=== PATIENT | female | born 1950 ===

== ENCOUNTER 2022-01-22 14:54 | Emergency (ER) | payer OTHER ==
[~2022-01-22] VITALS: Ht 152.4 cm; Wt 56.1 kg
[2022-01-22] MEDS ORDERED: LOSA-382 PO (15:03)
[2022-01-22] MEDS ORDERED: CALC-462 PO (15:03)
[2022-01-22] MEDS ORDERED: ALEN70TA80 PO (15:03)
[2022-01-22] MEDS ORDERED: ASPI81 PO (15:03)
[2022-01-22] MEDS ORDERED: OMEP20CA12 PO (15:03)
[2022-01-22] MEDS ORDERED: HYDR25TA2 PO (15:03)
[2022-01-22] MEDS ORDERED: 0.9% SODIUM CHLORIDE 10 ML SYRINGE IVP PRN (15:30)
[2022-01-22 15:59] LABS: COVID AG,FIA SOURCE NASAL SWAB
[2022-01-22 16:01] LABS: BASOPHILS % (AUTO) 0.1 % (0.0-2.0); EOSINOPHILS % (AUTO) 0.2 % (1.0-6.0); HEMATOCRIT 36.7 % (36-46); LYMPHOCYTES # (AUTO) 0.5 K/uL (1.0-4.8); LYMPHOCYTES % (AUTO) 2.9 % (22.0-44.0); MEAN CORPUSCULAR HGB CONC 32.6 G/dL (31.0-37.0); MEAN CORPUSCULAR VOLUME 95 fL (80-100); MONOCYTES # (AUTO) 0.9 K/uL (0.1-1.0); MONOCYTES % (AUTO) 4.8 % (2.0-9.0); PLATELET COUNT (AUTO) 271 K/uL (150-450); RED BLOOD CELL COUNT(AUTO) 3.87 MIL/uL (4.00-5.20); RED CELL DISTRIBUTION WIDTH 13.7 % (11.5-14.5)
[2022-01-22 16:10] LABS: APPEARANCE,URINE CLEAR (CLEAR); BILIRUBIN,URINE NEGATIVE (NEGATIVE); GLUCOSE, URINE (UA) NEGATIVE (NEGATIVE); KETONES,URINE TRACE mg/dL (NEGATIVE); LEUKOCYTE ESTERASE ,URINE NEGATIVE (NEGATIVE); NITRATE,URINE NEGATIVE (NEGATIVE); OCCULT BLOOD,URINE NEGATIVE (NEGATIVE); PROTEIN,URINE NEGATIVE (NEGATIVE); SPECIFIC GRAVITIY, URINE 1.019 (1.003-1.030); UROBILINOGEN,URINE <=1.0 mg/dL (<=1.0)
[2022-01-22 16:15] LABS: ANION GAP 7 mmol/L (8-16); CALCIUM, TOTAL 8.9 mg/dL (8.8-10.5); CARBON DIOXIDE 28 mmol/L (22-29); CHLORIDE 101 mmol/L (98-107); CREATININE 0.89 mg/dL (0.60-1.30); GLOMERULAR FILTR. RATE CALC > 60 mL/min (>60); GLUCOSE,RANDOM 164 mg/dL (70-110); POTASSIUM 3.3 mmol/L (3.5-5.1); SODIUM SERUM 136 mmol/L (136-145); UREA NITROGEN, BLOOD 23 mg/dL (7-18)
[2022-01-22 16:22] LABS: LACTIC ACID 1.4 mmol/L (0.4-2.0)
[2022-01-22 16:27] LABS: B-TYPE NATRIURETIC PEPTIDE 37 pg/mL (0-100)
[2022-01-22 16:28] LABS: ALANINE AMINOTRANSFERASE 38 U/L (12-78); ALBUMIN 3.7 g/dL (3.4-5.0); ALKALINE PHOSPHATASE 76 U/L (46-116); ASPARTATE AMINOTRANSFERASE 28 U/L (15-37); BILIRUBIN,TOTAL 0.5 mg/dL (0.1-1.0); LIPASE 267 U/L (73-393); TOTAL PROTEIN, SERUM 7.8 g/dL (6.4-8.2)
[2022-01-22 16:35] LABS: INFLUENZA TYPE A NEGATIVE FOR TYPE A (NEGATIVE); INFLUENZA TYPE B NEGATIVE FOR TYPE B (NEGATIVE)
[2022-01-22] MEDS ORDERED: SODIUM CHLORIDE 0.9% 1,700 ML IV ONE (17:15)
[2022-01-22] MEDS ORDERED: CefTRIAXone 1 GM/DEXTROSE 50 ML IV ONE (17:45)
[2022-01-22] MEDS ORDERED: AZITHROMYCIN 500 MG/NS 250 ML IV ONE (17:45)
[2022-01-22] MEDS ORDERED: AZIT250T9 PO (18:24)
[2022-01-22 19:03] VITALS: BP 128/61
== END 2022-01-22 19:44 | disposition left against medical advice (07) ==
LOC: EMS 14:59
DX: R55 Syncope and collapse (principal); D72.829 Elevated white blood cell count, unspecified; R42 Dizziness and giddiness; R11.2 Nausea with vomiting, unspecified; J18.9 Pneumonia, unspecified organism; R51.9 Headache, unspecified; Z91.040 Latex allergy status; E78.00 Pure hypercholesterolemia, unspecified; I10 Essential (primary) hypertension; Z20.822 Contact with and (suspected) exposure to COVID-19; Z90.49 Acquired absence of other specified parts of digestive tract; Z98.890 Other specified postprocedural states; Z90.710 Acquired absence of both cervix and uterus
CPT/HCPCS: 99285; 96365; 70450; 71045; 96361; 87426; 80053; 81003; 83605; 83690; 83880; 84484; 85025; 87040; 87804; 36415; 93005; 96368; 84145; J0456; J7030; 96366